=== PATIENT | male | born 1975 | race Caucasian/White ===

== ENCOUNTER 2017-06-21 14:05 | Emergency (ER) | payer MEDICAID ==
[2017-06-21] MEDS: DIPHTH/TET/ACEL PERTUSS (ADULT) 0.5 ML VIAL IM* (15:09)
[2017-06-21] MEDS: HYDROCODONE/APAP (10/325) TAB PO (15:11)
[2017-06-21] MEDS: SOD CHLORIDE 0.9% 1,000 ML IV (16:28)
[2017-06-21 16:46] LABS: ADD MAN DIFF? NO
[2017-06-21 16:50] LABS: BASOPHIL # 0.1 10^3/ul (0.0-0.1); BASOPHILS % 0.6 % (0.0-2.0); EOSINOPHILS # 0.1 10^3/ul (0.0-0.5); HEMOGLOBIN 15.3 g/dl (14.0-18.0); LYMPHOCYTES # 1.9 10^3/ul (0.8-2.9); LYMPHOCYTES % 17.2 % (15.0-51.0); MEAN CORPUSCULAR HEMOGLOBIN 32.1 pg (29.0-33.0); MEAN CORPUSCULAR HGB CONC 36.4 g/dl (32.0-37.0); MEAN CORPUSCULAR VOLUME 88.2 fl (82.0-101.0); MONOCYTE # 0.9 10^3/ul (0.3-0.9); MONOCYTES % 8.7 % (0.0-11.0); NEUTROPHIL # 7.8 10^3/ul (1.6-7.5); PLATELET COUNT 260 10^3/UL (140-415); RED BLOOD COUNT 4.76 10^6/ul (4.70-6.10); RED CELL DISTRIBUTION WIDTH 12.2 % (11.5-14.5)
[2017-06-21 16:50] LABS: WHITE BLOOD COUNT 10.8 10^3/ul (4.8-10.8)
[2017-06-21 17:10] LABS: INR 0.92; PROTIME 12.4 Sec (11.9-14.9)
[2017-06-21 17:11] LABS: ANION GAP 16 (8-16); BLOOD UREA NITROGEN 19 mg/dl (7-20); CALCIUM 9.3 mg/dl (8.4-10.2); CARBON DIOXIDE 27 mmol/L (21-31); CHLORIDE 104 mmol/L (97-110); CREATININE 0.86 mg/dl (0.61-1.24); GLUCOSE 100 mg/dl (70-220); PARTIAL THROMBOPLASTIN TIME 29.2 Sec (25.0-35.0); SODIUM 143 mmol/L (135-144)
[2017-06-21] MEDS: IOHEXOL 100 ML (18:00)
[2017-06-21] MEDS: SOD CHLORIDE 0.9% 100 ML (18:00)
[2017-06-21] MEDS: LIDOCAINE 1%/EPI 30 ML INJ INJ (18:17)
[2017-06-21] MEDS: CEFAZOLIN 1 GM/50 ML (PMX) 50 ML IVPB (18:19)
[2017-06-21] MEDS: morphine 4 MG/ML VIAL IV (18:47)
== END 2017-06-21 19:25 | disposition home or self-care (01) ==
LOC: FTE 14:05
DX: S61.542A Puncture wound with foreign body of left wrist, initial encounter (principal); M79.632 Pain in left forearm; W29.4XXA Contact with nail gun, initial encounter; Y92.9 Unspecified place or not applicable; Z23 Encounter for immunization
CPT/HCPCS: 12032; 36415; 73090; 73206; 80048; 85025; 85610; 85730; 90471; 90715; 96361; 96365; 96375; 99285-25

== ENCOUNTER 2017-10-19 08:25 | Emergency (ER) | payer MEDICAID ==
[2017-10-19] MEDS: CEFAZOLIN 1 GM/50 ML (PMX) 50 ML IVPB (08:57)
[2017-10-19] MEDS: HYDROmorphONE 1 MG/ML SYG IV ×3 (08:57→13:18)
[2017-10-19] MEDS: SOD CHLORIDE 0.9% 1,000 ML IV (08:58)
[2017-10-19] MEDS: ONDANSETRON 4 MG INJ IV (08:58)
[2017-10-19] MEDS: LIDOCAINE 1% (MDV) 20 ML INJ SC (10:26)
[2017-10-19] MEDS: KETOROLAC 30 MG INJ IV (13:18)
== END 2017-10-19 17:07 | disposition short-term general hospital (02) ==
LOC: FTE 08:25
DX: S61.412A Laceration without foreign body of left hand, initial encounter (principal); W31.1XXA Contact with metalworking machines, initial encounter; Y92.9 Unspecified place or not applicable
CPT/HCPCS: 12002; 73130-LT; 96374; 96375; 96376; 99285-25

== ENCOUNTER 2018-02-09 18:08 | Emergency (ER) | payer MEDICAID ==
[2018-02-09] MEDS ORDERED: LIDOCAINE 1%/EPI 30 ML INJ INJ (20:24)
[2018-02-09] MEDS: HYDROCODONE/APAP (10/325) TAB PO (21:54)
[2018-02-09] MEDS: ONDANSETRON (ODT) 4 MG TAB ODT (21:54)
== END 2018-02-09 22:42 | disposition home or self-care (01) ==
LOC: E/R 18:08
DX: S01.01XA Laceration without foreign body of scalp, initial encounter (principal); R40.2142 Coma scale, eyes open, spontaneous, at arrival to emergency department; R40.2252 Coma scale, best verbal response, oriented, at arrival to emergency department; R40.2362 Coma scale, best motor response, obeys commands, at arrival to emergency department; W26.8XXA Contact with other sharp object(s), not elsewhere classified, initial encounter; Y92.9 Unspecified place or not applicable
CPT/HCPCS: 12004; 70450; 72125; 99284-25

== ENCOUNTER 2018-02-12 12:32 | Emergency (ER) | payer MEDICAID | END 2018-02-12 14:18 | disposition home or self-care (01) | LOC: FTE 12:32 | DX: Z48.01 Encounter for change or removal of surgical wound dressing (principal); R40.2412 Glasgow coma scale score 13-15, at arrival to emergency department | CPT/HCPCS: 99281 ==

== ENCOUNTER 2018-02-20 08:44 | Emergency (ER) | payer MEDICAID | END 2018-02-20 09:17 | disposition home or self-care (01) | LOC: FTE 08:44 | DX: Z48.02 Encounter for removal of sutures (principal) | CPT/HCPCS: 99281; Z7502 ==